=== PATIENT | female | born 1980 | race Caucasian/White ===

== ENCOUNTER → 2019-03-26 14:51 | Outpatient (CLI) | payer MEDICAID, SELFPAY ==
[2016-05-16 11:05] VITALS: BMI 26.7
[2019-03-26 17:48] LABS: Absolute Lymphocyte Count 3.07 X10^3/uL (0.83-4.51); Absolute Neutrophil Count 3.6 X10^3/uL (2.0-7.7); Basophil# 0.03 X10^3/uL; Basophil% 0.4 % (0-1); Eosinophil# 0.17 X10^3/uL; Eosinophils% 2.3 % (0-5); Hematocrit 43.9 % (37-47); Hemoglobin 14.2 g/dL (12.0-15.0); Lymphocyte # 3.07 X10^3/ul (4.0); Lymphocyte % 42.3 % (19-41); Mean Corp Hgb Conc 32.3 g/dL (32-36); Mean Corpuscular Hgb 34.5 pg (27.0-32.0); Mean Corpuscular Volume 106.6 fL (81-99); Mean Platelet Vol. 10.6 fl (6.2-12.0); Monocyte# 0.43 X10^3/uL; Monocyte% 5.9 % (0-10); NRBC Flagged by Analyzer 0 % (0-5); Neutrophil # 3.55 X10^3/uL (2.7-7.7); Platelet Count 253 K/mm3 (150-450); RBC Distribution Width CV 12.6 % (11.6-14.6); RBC Distribution Width SD 50.4 fl (35.1-43.9); Red Blood Count 4.12 M/mm3 (4.2-5.4); White Blood Count 7.3 K/mm3 (4.4-11.0)
[2019-03-26 17:58] LABS: AST(SGOT) 32 U/L (15-37); Alanine Aminotransfer ALT/SGPT 73 U/L (13-56); Albumin, Serum 3.5 g/dL (3.2-5.0); Alkaline Phosphatase 140 U/L (45-117); Anion Gap 7 (5-15); BUN 20 mg/dL (7-18); BUN/Creat Ratio 25.1 RATIO (10-20); Calcium,Total 8.3 mg/dL (8.5-10.1); Chloride 106 mmol/L (98-107); EST Glomerular Filtration Rate 84 mL/min (>60); Est Glom Filt Rate - Afr Amer 102 mL/min (>60); Globulin 3.4 g/dL (2.2-4.2); Glucose 84 mg/dL (74-106); Protein, Total 6.9 g/dL (6.4-8.2); Sodium Level 143 mmol/L (136-145); T3 Uptake 34 % (30-39); T4 Free Direct 0.65 ng/dL (0.76-1.46); T4 Total, Thyroxin 5.8 ug/dL (4.8-13.9); Thyroid Stim Hormone (TSH) 2.68 uIU/mL (0.358-3.74)
== END ==
PROVIDERS: Family Provider Family Medicine; PCP Family Medicine; Referring Provider Dermatology; Visit Provider Dermatology
DX: L23.9 Allergic contact dermatitis, unspecified cause (principal); L29.8 Other pruritus
CPT/HCPCS: 36415; 80053; 84436; 84439; 84443; 84479; 85025

== ENCOUNTER → 2019-03-27 11:21 | Outpatient (CLI) | payer MEDICAID, SELFPAY ==
[2019-03-27 10:12] VITALS: BMI 26.0
== END ==
PROVIDERS: Family Provider Family Medicine; PCP Family Medicine; Referring Provider Internal Medicine Cardiovascular Disease; Visit Provider Internal Medicine Cardiovascular Disease
DX: I47.1 Supraventricular tachycardia (principal); R00.2 Palpitations
CPT/HCPCS: 93225; 93226

== ENCOUNTER → 2019-04-24 13:51 | Outpatient (CLI) | payer MEDICAID, SELFPAY ==
[2019-03-27 10:12] VITALS: BMI 26.0
--- NOTE | 2019-04-24 13:53 | ECHOD_ITS ---
Reason For Study: Arrhythmia Procedure This was a 2D Doppler, Color Flow transthoracic echocardiogram. The exam was of adequate technical quality. Exam performed in department. Left Ventricle Normal LV size. Left ventricular systolic function is normal. The estimated ejection fraction is 65 %. No evidence for diastolic dysfunction. No regional wall motion abnormalities noted. Right Ventricle Normal RV size. Normal systolic function. Atria Normal left atrium. Normal right atrium. No doppler evidence for ASD. Mitral Valve There is no mitral annular calcification. Normal mitral valve. Trivial mitral valve insufficiency. Tricuspid Valve Normal tricuspid valve. Trivial tricuspid valve insufficiency. Right ventricular systolic pressure estimated to be 23 mmHg. Aortic Valve Trisinus/trileaflet aortic valve. Normal aortic valve. Pulmonic Valve The pulmonic valve is not well visualized. Trivial pulmonic valve insufficiency. Great Vessels Normal sized aortic root. Pericardium/Pleural No pericardial effusion. MMode/2D Measurements & Calculations LVIDd: 4.4 cm IVSd: 1.1 cm Ao root diam: 2.9 cm LVIDs: 2.8 cm LVPWd: 1.0 cm RVDd: 3.3 cm FS: 35.8 % LAV(MOD-bp): 27.9 ml LVAd ap4: 20.3 cm2 SV(MOD-sp4): 32.1 ml LAV(MOD-bp) Indexed: 15.5 ml/m2 EDV(MOD-sp4): 49.8 ml LAV(MOD-sp2): 27.8 ml EDV(sp4-el): 50.1 ml LAV(MOD-sp4): 21.5 ml LVAs ap4: 11.0 cm2 ESV(MOD-sp4): 17.7 ml ESV(sp4-el): 17.0 ml EF(MOD-sp4): 64.5 % EF(sp4-el): 66.1 % SV(sp4-el): 33.1 ml LA A4 area: 11.1 cm2 LA dimension(2D): 2.8 cm RA A4 area: 13.0 cm2 Doppler Measurements & Calculations MV E max jordin: 68.7 cm/sec Lat Peak E' Jordin: 15.0 cm/sec Med Peak E' Jordin: 7.4 cm/sec MV A max jordin: 60.8 cm/sec E/E' lat: 4.6 E/E' med: 9.3 MV E/A: 1.1 Ao V2 max: 123.4 cm/sec LV V1 max: 110.6 cm/sec PA V2 max: 77.0 cm/sec Ao max P.1 mmHg LV V1 max P.9 mmHg Ao V2 mean: 89.0 cm/sec Ao mean P.4 mmHg Ao V2 VTI: 26.9 cm TR max jordin: 222.9 cm/sec TR max P.9 mmHg Interpretation Summary Left ventricular systolic function is normal. The estimated ejection fraction is 65 %. Trivial mitral valve insufficiency. Trivial tricuspid valve insufficiency. Trivial pulmonic valve insufficiency. Right ventricular systolic pressure estimated to be 23 mmHg. No evidence for diastolic dysfunction. Ordering Physician: Jhonny Douglass Referring Physician: Juan Storey Performed By: Megan Stephenson RDCS, RVT
== END ==
PROVIDERS: Family Provider Family Medicine; PCP Family Medicine; Referring Provider Internal Medicine Cardiovascular Disease; Visit Provider Internal Medicine Cardiovascular Disease
DX: R00.2 Palpitations (principal); I47.1 Supraventricular tachycardia
CPT/HCPCS: 93306